=== PATIENT | male | born 1995 | race Caucasian/White ===

== ENCOUNTER → 2016-08-23 | Outpatient (CLI) | payer OTHER ==
[~2016-08-23] MED LIST: AMOXIL500 MG PO; TYLENOL W/CODEI1 TA2 PO; ZYRTEC-D 12HR 51 TER PO
[2016-08-24 06:11] LABS: TOTAL PROTEIN, SERUM 7.9 g/dL (6.0-8.5)
[2016-08-24 15:08] LABS: A/G RATIO 1.1 (0.7-1.7); ALBUMIN 4.2 g/dL (2.9-4.4); ALBUMIN, URINE 26.9 % (.); ALPHA-1-GLOBULIN 0.2 g/dL (0.0-0.4); BETA GLOBULIN 1.2 g/dL (0.7-1.3); GAMMA GLOBULIN 1.6 g/dL (0.4-1.8); GAMMA GLOBULIN, URINE 20.7 % (.); GLOBULIN, TOTAL 3.7 g/dL (2.2-3.9); M-SPIKE Not Observed g/dL (Not Observed); M-SPIKE, % Not Observed % (Not Observed); PROTEIN,TOTAL - URINE RANDOM 21.1 mg/dL (Not Estab.)
== END | disposition home or self-care (01) ==
LOC: LAB 11:06
PROVIDERS: Family Medicine
DX: E88.09 Other disorders of plasma-protein metabolism, not elsewhere classified (principal)

== ENCOUNTER → 2025-04-07 | Outpatient (CLI) | payer BC ==
[2025-04-07 09:41] LABS: MEAN CELL VOLUME 90.9 fl (80.0-94.0); MEAN CORPUSCULAR HGB 30.2 pg (27.0-31.0); MEAN PLATELET VOLUME 8.8 fl (9.6-12.3); NUCLEATED RED BLOOD CELL 0.0 % (0.0-0.0); NUCLEATED RED BLOOD CELL 0.0 10*3/uL (0.0-0.0); PLATELET COUNT AUTOMATED 377.0 10*3/uL (130-400); RED CELL DISTRI WIDTH 12.0 % (0-14.5)
[2025-04-07 10:09] LABS: BUN 12 mg/dl (9-23); LDL CHOLESTEROL 65 mg/dL (9-159); SGPT/ALT 58 U/L (5-49)
== END | disposition home or self-care (01) ==
LOC: US 08:05 → LAB 08:05 → US 08:30
PROVIDERS: ATTEND Nurse Practitioner Family
DX: K76.0 Fatty (change of) liver, not elsewhere classified (principal); R74.8 Abnormal levels of other serum enzymes; E78.5 Hyperlipidemia, unspecified